=== PATIENT | female | born 1950 | race Caucasian/White ===

== ENCOUNTER 2017-06-14 15:59 | Outpatient (CLI) | payer MEDICARE, BC ==
[2015-02-03 09:43] VITALS: O2SAT 97
== END 2017-06-14 16:00 | disposition home or self-care (01) | DRG 552 ==
LOC: CONVCARE 15:59
PROVIDERS: ATTEND Orthopaedic Surgery
DX: M51.36 Other intervertebral disc degeneration, lumbar region (principal); M51.37 Other intervertebral disc degeneration, lumbosacral region
CPT/HCPCS: 72120

== ENCOUNTER 2017-07-18 11:33 | Day surgery (SDC) | payer MEDICARE, BC ==
[2017-07-18] MEDS ORDERED: BUPIVACAINE HCL 0.25% MPF 10 ML SOL INFIL ONE (12:03)
[2017-07-18] MEDS: DEXAMETHASONE SOD PHOS PF 10 MG/ML SOL IJ ONE ×3 (12:13→12:29)
[2017-07-18 12:36] VITALS: BP 140/63; PULSE 68; RESP 18; TEMP 98.2; O2SAT 94
== END 2017-07-18 12:55 | disposition home or self-care (01) | DRG 552 ==
LOC: SURG 11:33
PROVIDERS: ATTEND Nurse Anesthetist, Certified Registered
DX: M48.062 Spinal stenosis, lumbar region with neurogenic claudication (principal)
CPT/HCPCS: J1100

== ENCOUNTER 2017-08-08 13:24 | Day surgery (SDC) | payer MEDICARE, BC ==
[2017-08-08] MEDS ORDERED: BUPIVACAINE HCL 0.25% MPF 10 ML SOL INFIL ONE (15:05)
[2017-08-08] MEDS: TRIAMCINOLONE ACETONIDE 40 MG/ML SUS ONE ×2 (15:16→15:17)
[2017-08-08 15:37] VITALS: BP 130/46; PULSE 65; RESP 20; TEMP 97.5; O2SAT 95
== END 2017-08-08 16:15 | disposition home or self-care (01) | DRG 554 ==
LOC: SURG 13:24
PROVIDERS: ATTEND Nurse Anesthetist, Certified Registered
DX: M16.11 Unilateral primary osteoarthritis, right hip (principal)
CPT/HCPCS: J3300

== ENCOUNTER → 2017-08-22 | Day surgery (SDC) | payer MEDICARE, BC ==
[~2017-08-22] MED LIST: BUPIVACAINE HCL 0.25% MPF 10 ML SOL INFIL ONE; DIAZEPAM 5 MG TAB ONE
[2017-08-22] MEDS: DEXAMETHASONE SOD PHOS PF 10 MG/ML SOL IJ ONE ×2 (12:43→12:48)
[2017-08-22 13:03] VITALS: BP 144/69; PULSE 66; RESP 12; TEMP 98; O2SAT 96
== END | disposition home or self-care (01) | DRG 552 ==
LOC: SURG 11:35
PROVIDERS: ATTEND Nurse Anesthetist, Certified Registered
DX: M48.062 Spinal stenosis, lumbar region with neurogenic claudication (principal)
CPT/HCPCS: J1100

== ENCOUNTER 2017-10-20 12:45 | Inpatient (IN) | payer MEDICARE, BC ==
[2017-10-20] MEDS ORDERED: AZELASTINE HYDROCHLORIDE NAS PRN (17:34)
[2017-10-20] MEDS ORDERED: APAP/HYDROCODONE 325/7.5 TAB PO PRN ×2 (17:34→18:11)
[2017-10-20] MEDS ORDERED: DOCUSATE SODIUM 100 MG SGL PO PRN (17:34)
[2017-10-20] MEDS: CYCLOBENZAPRINE 10 MG TAB PO PRN (18:17)
[2017-10-20] MEDS ORDERED: OXYCODONE HYDROCHLORIDE 5 MG TAB PO ONE (18:45)
[2017-10-20] MEDS ORDERED: LAMOTRIGINE 25 MG TAB ONE (19:49)
[2017-10-20] MEDS: LEVETIRACETAM 250 MG TAB PO SCH (20:05)
[2017-10-20] MEDS: LAMOTRIGINE 100 MG TAB PO SCH (20:10)
[2017-10-20] MEDS: LOVASTATIN 10 MG TAB PO SCH (20:11)
[2017-10-20] MEDS: SENNOSIDES A AND B 8.6 MG TAB PO SCH (20:13)
[2017-10-20] MEDS: GABAPENTIN 300 MG CAP PO SCH (20:13)
[2017-10-20] MEDS: MULTIVITAMIN2 1 EA TAB PO SCH (20:14)
[2017-10-21] MEDS: APAP/HYDROCODONE 325/5 TAB PO PRN ×2 (03:17→09:26)
[2017-10-21 08:08] LABS: APPEARANCE,URINE Clear; BILIRUBIN,URINE NEGATIVE (NEGATIVE); COLOR,URINE Yellow; GLUCOSE, URINE (UA) NEGATIVE (NEGATIVE); KETONES,URINE NEGATIVE (NEGATIVE); LEUKOCYTE ESTERASE ,URINE NEGATIVE (NEGATIVE); NITRATE,URINE NEGATIVE (NEGATIVE); OCCULT BLOOD,URINE TRACE INTACT (NEG-TRACE); PH,URINE 8.5
[2017-10-21 08:35] LABS: RBC,URINE 0-2 (0-3AV/HPF); WBC,URINE 0-3 (0-5AV/HPF)
[2017-10-21] MEDS ORDERED: POLYETHYLENE GLYCOL 17 GM/1 TBS PDS PO PRN (09:00)
[2017-10-21] MEDS: LEVETIRACETAM 250 MG TAB PO SCH ×2 (09:24→20:15)
[2017-10-21] MEDS: GABAPENTIN 300 MG CAP PO SCH ×3 (09:25→20:18)
[2017-10-21] MEDS: CHOLECALCIFEROL 1,000 IU TAB PO SCH (09:25)
[2017-10-21] MEDS: SENNOSIDES A AND B 8.6 MG TAB PO SCH ×2 (09:25→20:18)
[2017-10-21] MEDS: ASCORBIC ACID 500 MG TAB PO SCH (09:25)
[2017-10-21] MEDS: ASPIRIN 81 MG CHEWABLE CTB PO SCH (09:25)
[2017-10-21] MEDS: CALCIUM CARBONATE 500 MG TAB PO SCH (09:25)
[2017-10-21] MEDS: CYCLOBENZAPRINE 10 MG TAB PO PRN ×3 (09:25→23:48)
[2017-10-21] MEDS: CYANOCOBALAMIN 500 MCG TAB PO SCH (09:26)
[2017-10-21] MEDS: SERTRALINE HYDROCHLORIDE 50 MG TAB PO SCH (09:33)
[2017-10-21] MEDS: LAMOTRIGINE 100 MG TAB PO SCH ×2 (09:35→20:20)
[2017-10-21] MEDS ORDERED: ACETAMINOPHEN 325 MG PO SCH (12:15)
[2017-10-21] MEDS: LIDOCAINE 5% PATCH 1 PATCH TDM TOP SCH (12:39)
[2017-10-21] MEDS: OXYCODONE HYDROCHLORIDE 5 MG TAB PO PRN ×2 (13:11→20:20)
[2017-10-21] MEDS: ENOXAPARIN 40 MG SOL SC SCH (13:15)
[2017-10-21] MEDS: ACETAMINOPHEN 500 MG 500 MG TAB PO SCH ×2 (14:11→20:14)
[2017-10-21] MEDS: LOVASTATIN 10 MG TAB PO SCH (20:17)
[2017-10-21] MEDS: MULTIVITAMIN2 1 EA TAB PO SCH (20:19)
[2017-10-22] MEDS: ACETAMINOPHEN 500 MG 500 MG TAB PO SCH ×4 (01:04→19:26)
[2017-10-22] MEDS: OXYCODONE HYDROCHLORIDE 5 MG TAB PO PRN ×4 (02:06→19:25)
[2017-10-22] MEDS: GABAPENTIN 300 MG CAP PO SCH ×3 (09:24→20:48)
[2017-10-22] MEDS: ASCORBIC ACID 500 MG TAB PO SCH (09:24)
[2017-10-22] MEDS: CHOLECALCIFEROL 1,000 IU TAB PO SCH (09:24)
[2017-10-22] MEDS: GABAPENTIN 100 MG CAP PO SCH ×3 (09:24→20:51)
[2017-10-22] MEDS: CALCIUM CARBONATE 500 MG TAB PO SCH (09:24)
[2017-10-22] MEDS: ASPIRIN 81 MG CHEWABLE CTB PO SCH (09:25)
[2017-10-22] MEDS: LEVETIRACETAM 250 MG TAB PO SCH ×2 (09:25→20:45)
[2017-10-22] MEDS: SERTRALINE HYDROCHLORIDE 50 MG TAB PO SCH (09:25)
[2017-10-22] MEDS: LAMOTRIGINE 100 MG TAB PO SCH ×2 (09:25→20:47)
[2017-10-22] MEDS: LIDOCAINE 5% PATCH 1 PATCH TDM TOP SCH (09:26)
[2017-10-22] MEDS: SENNOSIDES A AND B 8.6 MG TAB PO SCH ×2 (09:27→20:48)
[2017-10-22] MEDS: CYANOCOBALAMIN 500 MCG TAB PO SCH (12:12)
[2017-10-22] MEDS: ENOXAPARIN 40 MG SOL SC SCH (12:15)
[2017-10-22] MEDS: CYCLOBENZAPRINE 10 MG TAB PO PRN (20:44)
[2017-10-22] MEDS: LOVASTATIN 10 MG TAB PO SCH (20:48)
[2017-10-22] MEDS: MULTIVITAMIN2 1 EA TAB PO SCH (20:54)
[2017-10-23] MEDS: OXYCODONE HYDROCHLORIDE 5 MG TAB PO PRN ×4 (02:02→19:39)
[2017-10-23] MEDS: ACETAMINOPHEN 500 MG 500 MG TAB PO SCH ×4 (02:03→19:39)
[2017-10-23] MEDS: CYCLOBENZAPRINE 10 MG TAB PO PRN ×2 (06:38→13:29)
[2017-10-23] MEDS: CYANOCOBALAMIN 500 MCG TAB PO SCH (08:39)
[2017-10-23] MEDS: SENNOSIDES A AND B 8.6 MG TAB PO SCH ×2 (08:39→21:01)
[2017-10-23] MEDS: ASCORBIC ACID 500 MG TAB PO SCH (08:39)
[2017-10-23] MEDS: SERTRALINE HYDROCHLORIDE 50 MG TAB PO SCH (08:39)
[2017-10-23] MEDS: CHOLECALCIFEROL 1,000 IU TAB PO SCH (08:39)
[2017-10-23] MEDS: CALCIUM CARBONATE 500 MG TAB PO SCH (08:39)
[2017-10-23] MEDS: LEVETIRACETAM 250 MG TAB PO SCH ×2 (08:40→20:59)
[2017-10-23] MEDS: ASPIRIN 81 MG CHEWABLE CTB PO SCH (08:40)
[2017-10-23] MEDS: LAMOTRIGINE 100 MG TAB PO SCH ×2 (08:40→20:59)
[2017-10-23] MEDS: GABAPENTIN 300 MG CAP PO SCH ×3 (08:40→21:01)
[2017-10-23] MEDS: LIDOCAINE 5% PATCH 1 PATCH TDM TOP SCH (09:30)
[2017-10-23] MEDS: ENOXAPARIN 40 MG SOL SC SCH (12:02)
[2017-10-23] MEDS: LOVASTATIN 10 MG TAB PO SCH (21:00)
[2017-10-23] MEDS: MULTIVITAMIN2 1 EA TAB PO SCH (21:02)
[2017-10-24] MEDS: ACETAMINOPHEN 500 MG 500 MG TAB PO SCH ×4 (01:19→19:08)
[2017-10-24] MEDS: OXYCODONE HYDROCHLORIDE 5 MG TAB PO PRN ×5 (01:19→23:20)
[2017-10-24] MEDS: CYCLOBENZAPRINE 10 MG TAB PO PRN ×2 (06:17→15:58)
[2017-10-24] MEDS: ASPIRIN 81 MG CHEWABLE CTB PO SCH (10:09)
[2017-10-24] MEDS: SENNOSIDES A AND B 8.6 MG TAB PO SCH ×2 (10:09→20:10)
[2017-10-24] MEDS: LAMOTRIGINE 100 MG TAB PO SCH ×2 (10:09→20:10)
[2017-10-24] MEDS: LEVETIRACETAM 250 MG TAB PO SCH ×2 (10:10→20:09)
[2017-10-24] MEDS: ASCORBIC ACID 500 MG TAB PO SCH (10:11)
[2017-10-24] MEDS: CALCIUM CARBONATE 500 MG TAB PO SCH (10:11)
[2017-10-24] MEDS: CHOLECALCIFEROL 1,000 IU TAB PO SCH (10:11)
[2017-10-24] MEDS: GABAPENTIN 300 MG CAP PO SCH ×3 (10:12→20:10)
[2017-10-24] MEDS: LORAZEPAM 0.5 MG TAB PO SCH ×2 (10:12→20:09)
[2017-10-24] MEDS: SERTRALINE HYDROCHLORIDE 50 MG TAB PO SCH (10:12)
[2017-10-24] MEDS: CYANOCOBALAMIN 500 MCG TAB PO SCH (10:22)
[2017-10-24] MEDS: LIDOCAINE 5% PATCH 1 PATCH TDM TOP SCH (10:23)
[2017-10-24] MEDS: ENOXAPARIN 40 MG SOL SC SCH (13:13)
[2017-10-24] MEDS: LOVASTATIN 10 MG TAB PO SCH (20:10)
[2017-10-24] MEDS: MULTIVITAMIN2 1 EA TAB PO SCH (20:11)
[2017-10-25] MEDS: CYCLOBENZAPRINE 10 MG TAB PO PRN (01:32)
[2017-10-25] MEDS: ACETAMINOPHEN 500 MG 500 MG TAB PO SCH ×4 (01:32→19:40)
[2017-10-25] MEDS: OXYCODONE HYDROCHLORIDE 5 MG TAB PO PRN ×4 (04:20→22:27)
[2017-10-25] MEDS: LAMOTRIGINE 100 MG TAB PO SCH ×2 (08:54→20:33)
[2017-10-25] MEDS: SENNOSIDES A AND B 8.6 MG TAB PO SCH ×2 (08:55→20:34)
[2017-10-25] MEDS: ASPIRIN 81 MG CHEWABLE CTB PO SCH (08:56)
[2017-10-25] MEDS: LEVETIRACETAM 250 MG TAB PO SCH ×2 (08:58→20:32)
[2017-10-25] MEDS: CALCIUM CARBONATE 500 MG TAB PO SCH (09:00)
[2017-10-25] MEDS: CHOLECALCIFEROL 1,000 IU TAB PO SCH (09:01)
[2017-10-25] MEDS: SERTRALINE HYDROCHLORIDE 50 MG TAB PO SCH (09:01)
[2017-10-25] MEDS: ASCORBIC ACID 500 MG TAB PO SCH (09:01)
[2017-10-25] MEDS: GABAPENTIN 300 MG CAP PO SCH ×3 (09:02→20:33)
[2017-10-25] MEDS: CYANOCOBALAMIN 500 MCG TAB PO SCH (09:04)
[2017-10-25] MEDS: LORAZEPAM 0.5 MG TAB PO SCH ×2 (09:36→20:31)
[2017-10-25] MEDS: LIDOCAINE 5% PATCH 1 PATCH TDM TOP SCH (09:59)
[2017-10-25] MEDS: ENOXAPARIN 40 MG SOL SC SCH (12:33)
[2017-10-25] MEDS: CAMPHOR TOP SCH ×3 (17:13→20:33)
[2017-10-25] MEDS: MENTHOL TOP SCH ×3 (17:13→20:33)
[2017-10-25] MEDS: LOVASTATIN 10 MG TAB PO SCH (20:33)
[2017-10-25] MEDS: MULTIVITAMIN2 1 EA TAB PO SCH (20:34)
[2017-10-26] MEDS: ACETAMINOPHEN 500 MG 500 MG TAB PO SCH ×4 (01:42→19:21)
[2017-10-26] MEDS: OXYCODONE HYDROCHLORIDE 5 MG TAB PO PRN ×4 (03:35→20:43)
[2017-10-26] MEDS: LEVETIRACETAM 250 MG TAB PO SCH (08:29)
[2017-10-26] MEDS: GABAPENTIN 300 MG CAP PO SCH ×3 (08:30→20:40)
[2017-10-26] MEDS: LAMOTRIGINE 100 MG TAB PO SCH ×2 (08:30→20:45)
[2017-10-26] MEDS: ASCORBIC ACID 500 MG TAB PO SCH (08:31)
[2017-10-26] MEDS: CHOLECALCIFEROL 1,000 IU TAB PO SCH (08:31)
[2017-10-26] MEDS: CALCIUM CARBONATE 500 MG TAB PO SCH (08:31)
[2017-10-26] MEDS: CYANOCOBALAMIN 500 MCG TAB PO SCH (08:31)
[2017-10-26] MEDS: SENNOSIDES A AND B 8.6 MG TAB PO SCH ×2 (08:31→20:44)
[2017-10-26] MEDS: SERTRALINE HYDROCHLORIDE 50 MG TAB PO SCH (08:32)
[2017-10-26] MEDS: LORAZEPAM 0.5 MG TAB PO SCH ×2 (08:37→20:40)
[2017-10-26] MEDS: CAMPHOR TOP SCH ×5 (08:38→20:39)
[2017-10-26] MEDS: LIDOCAINE 5% PATCH 1 PATCH TDM TOP SCH ×2 (08:38→10:43)
[2017-10-26] MEDS: ASPIRIN 81 MG CHEWABLE CTB PO SCH (08:38)
[2017-10-26] MEDS: MENTHOL TOP SCH ×5 (08:38→20:39)
[2017-10-26] MEDS: ENOXAPARIN 40 MG SOL SC SCH (12:28)
[2017-10-26] MEDS: LEVETIRACETAM 500 MG TAB PO SCH (20:39)
[2017-10-26] MEDS: MULTIVITAMIN2 1 EA TAB PO SCH (20:46)
[2017-10-26] MEDS: LOVASTATIN 10 MG TAB PO SCH (20:46)
[2017-10-27] MEDS: OXYCODONE HYDROCHLORIDE 5 MG TAB PO PRN ×5 (01:13→19:29)
[2017-10-27] MEDS: CYCLOBENZAPRINE 10 MG TAB PO PRN ×2 (01:43→11:41)
[2017-10-27] MEDS: ACETAMINOPHEN 500 MG 500 MG TAB PO SCH ×4 (03:46→19:29)
[2017-10-27] MEDS: ASCORBIC ACID 500 MG TAB PO SCH (09:11)
[2017-10-27] MEDS: LIDOCAINE 5% PATCH 1 PATCH TDM TOP SCH (09:11)
[2017-10-27] MEDS: LAMOTRIGINE 100 MG TAB PO SCH ×2 (09:12→20:31)
[2017-10-27] MEDS: CHOLECALCIFEROL 1,000 IU TAB PO SCH (09:12)
[2017-10-27] MEDS: CALCIUM CARBONATE 500 MG TAB PO SCH (09:12)
[2017-10-27] MEDS: CAMPHOR TOP SCH ×4 (09:13→20:37)
[2017-10-27] MEDS: MENTHOL TOP SCH ×4 (09:13→20:37)
[2017-10-27] MEDS: LEVETIRACETAM 500 MG TAB PO SCH ×2 (09:16→20:37)
[2017-10-27] MEDS: GABAPENTIN 300 MG CAP PO SCH ×3 (09:16→20:35)
[2017-10-27] MEDS: SENNOSIDES A AND B 8.6 MG TAB PO SCH ×2 (09:16→20:33)
[2017-10-27] MEDS: ASPIRIN 81 MG CHEWABLE CTB PO SCH (09:17)
[2017-10-27] MEDS: CYANOCOBALAMIN 500 MCG TAB PO SCH (09:18)
[2017-10-27] MEDS: LORAZEPAM 0.5 MG TAB PO SCH ×2 (09:19→20:36)
[2017-10-27] MEDS: SERTRALINE HYDROCHLORIDE 50 MG TAB PO SCH (09:26)
[2017-10-27] MEDS: ENOXAPARIN 40 MG SOL SC SCH (11:42)
[2017-10-27] MEDS: LOVASTATIN 10 MG TAB PO SCH (20:32)
[2017-10-27] MEDS: MULTIVITAMIN2 1 EA TAB PO SCH (20:33)
[2017-10-28] MEDS: CYCLOBENZAPRINE 10 MG TAB PO PRN ×2 (00:22→22:57)
[2017-10-28] MEDS: OXYCODONE HYDROCHLORIDE 5 MG TAB PO PRN ×5 (00:22→22:57)
[2017-10-28] MEDS: ACETAMINOPHEN 500 MG 500 MG TAB PO SCH ×4 (00:39→19:57)
[2017-10-28] MEDS: LIDOCAINE 5% PATCH 1 PATCH TDM TOP SCH (09:26)
[2017-10-28] MEDS: MENTHOL TOP SCH ×4 (09:28→19:58)
[2017-10-28] MEDS: CAMPHOR TOP SCH ×4 (09:28→19:58)
[2017-10-28] MEDS: CYANOCOBALAMIN 500 MCG TAB PO SCH (09:29)
[2017-10-28] MEDS: LEVETIRACETAM 500 MG TAB PO SCH ×2 (09:29→20:03)
[2017-10-28] MEDS: SENNOSIDES A AND B 8.6 MG TAB PO SCH ×2 (09:29→20:00)
[2017-10-28] MEDS: LORAZEPAM 0.5 MG TAB PO SCH ×2 (09:29→20:05)
[2017-10-28] MEDS: GABAPENTIN 300 MG CAP PO SCH ×3 (09:30→20:02)
[2017-10-28] MEDS: CALCIUM CARBONATE 500 MG TAB PO SCH (09:30)
[2017-10-28] MEDS: SERTRALINE HYDROCHLORIDE 50 MG TAB PO SCH (09:30)
[2017-10-28] MEDS: LAMOTRIGINE 100 MG TAB PO SCH ×2 (09:30→19:59)
[2017-10-28] MEDS: ASPIRIN 81 MG CHEWABLE CTB PO SCH (09:32)
[2017-10-28] MEDS: ASCORBIC ACID 500 MG TAB PO SCH (09:32)
[2017-10-28] MEDS: CHOLECALCIFEROL 1,000 IU TAB PO SCH (09:32)
[2017-10-28] MEDS: ENOXAPARIN 40 MG SOL SC SCH (12:56)
[2017-10-28] MEDS: LOVASTATIN 10 MG TAB PO SCH (19:59)
[2017-10-28] MEDS: MULTIVITAMIN2 1 EA TAB PO SCH (20:00)
[2017-10-29] MEDS: CAMPHOR TOP SCH ×5 (01:16→21:34)
[2017-10-29] MEDS: MENTHOL TOP SCH ×5 (01:16→21:34)
[2017-10-29] MEDS: ACETAMINOPHEN 500 MG 500 MG TAB PO SCH ×4 (02:04→19:55)
[2017-10-29] MEDS: OXYCODONE HYDROCHLORIDE 5 MG TAB PO PRN ×3 (02:44→16:57)
[2017-10-29] MEDS: LAMOTRIGINE 100 MG TAB PO SCH ×2 (09:06→21:27)
[2017-10-29] MEDS: ASPIRIN 81 MG CHEWABLE CTB PO SCH (09:06)
[2017-10-29] MEDS: LEVETIRACETAM 500 MG TAB PO SCH ×2 (09:07→21:27)
[2017-10-29] MEDS: GABAPENTIN 300 MG CAP PO SCH ×3 (09:07→21:26)
[2017-10-29] MEDS: LIDOCAINE 5% PATCH 1 PATCH TDM TOP SCH (09:07)
[2017-10-29] MEDS: SENNOSIDES A AND B 8.6 MG TAB PO SCH ×2 (09:08→21:26)
[2017-10-29] MEDS: CYANOCOBALAMIN 500 MCG TAB PO SCH (09:08)
[2017-10-29] MEDS: CALCIUM CARBONATE 500 MG TAB PO SCH (09:08)
[2017-10-29] MEDS: SERTRALINE HYDROCHLORIDE 50 MG TAB PO SCH (09:09)
[2017-10-29] MEDS: ASCORBIC ACID 500 MG TAB PO SCH (09:09)
[2017-10-29] MEDS: CHOLECALCIFEROL 1,000 IU TAB PO SCH (09:09)
[2017-10-29] MEDS: LORAZEPAM 0.5 MG TAB PO SCH ×2 (09:13→21:27)
[2017-10-29] MEDS: ENOXAPARIN 40 MG SOL SC SCH (12:09)
[2017-10-29] MEDS: LOVASTATIN 10 MG TAB PO SCH (21:26)
[2017-10-29] MEDS: MULTIVITAMIN2 1 EA TAB PO SCH (21:27)
[2017-10-29] MEDS: CYCLOBENZAPRINE 10 MG TAB PO PRN (21:33)
[2017-10-30] MEDS: OXYCODONE HYDROCHLORIDE 5 MG TAB PO PRN ×4 (00:30→22:49)
[2017-10-30] MEDS: ACETAMINOPHEN 500 MG 500 MG TAB PO SCH ×4 (01:38→20:31)
[2017-10-30] MEDS: CYCLOBENZAPRINE 10 MG TAB PO PRN (05:49)
[2017-10-30] MEDS: ASPIRIN 81 MG CHEWABLE CTB PO SCH (08:41)
[2017-10-30] MEDS: LEVETIRACETAM 500 MG TAB PO SCH ×2 (08:42→21:24)
[2017-10-30] MEDS: LAMOTRIGINE 100 MG TAB PO SCH ×2 (08:42→21:23)
[2017-10-30] MEDS: CALCIUM CARBONATE 500 MG TAB PO SCH (08:43)
[2017-10-30] MEDS: GABAPENTIN 300 MG CAP PO SCH ×3 (08:43→21:27)
[2017-10-30] MEDS: SENNOSIDES A AND B 8.6 MG TAB PO SCH ×2 (08:43→21:28)
[2017-10-30] MEDS: SERTRALINE HYDROCHLORIDE 50 MG TAB PO SCH (08:44)
[2017-10-30] MEDS: CHOLECALCIFEROL 1,000 IU TAB PO SCH (08:44)
[2017-10-30] MEDS: CYANOCOBALAMIN 500 MCG TAB PO SCH (08:44)
[2017-10-30] MEDS: ASCORBIC ACID 500 MG TAB PO SCH (08:44)
[2017-10-30] MEDS: CAMPHOR TOP SCH ×4 (08:53→21:43)
[2017-10-30] MEDS: MENTHOL TOP SCH ×4 (08:53→21:43)
[2017-10-30] MEDS: LORAZEPAM 0.5 MG TAB PO SCH ×2 (08:53→21:43)
[2017-10-30] MEDS: LIDOCAINE 5% PATCH 1 PATCH TDM TOP SCH (08:53)
[2017-10-30] MEDS: ENOXAPARIN 40 MG SOL SC SCH (11:58)
[2017-10-30] MEDS: LOVASTATIN 10 MG TAB PO SCH (21:23)
[2017-10-30] MEDS: MULTIVITAMIN2 1 EA TAB PO SCH (21:28)
[2017-10-31] MEDS: CYCLOBENZAPRINE 10 MG TAB PO PRN ×2 (00:20→17:43)
[2017-10-31] MEDS: ACETAMINOPHEN 500 MG 500 MG TAB PO SCH ×4 (02:02→20:14)
[2017-10-31] MEDS: OXYCODONE HYDROCHLORIDE 5 MG TAB PO PRN ×4 (04:20→23:44)
[2017-10-31] MEDS: ASPIRIN 81 MG CHEWABLE CTB PO SCH (08:41)
[2017-10-31] MEDS: LAMOTRIGINE 100 MG TAB PO SCH ×2 (08:42→20:25)
[2017-10-31] MEDS: LORAZEPAM 0.5 MG TAB PO SCH ×2 (08:42→20:33)
[2017-10-31] MEDS: LEVETIRACETAM 500 MG TAB PO SCH ×2 (08:43→20:27)
[2017-10-31] MEDS: GABAPENTIN 300 MG CAP PO SCH ×3 (08:44→20:30)
[2017-10-31] MEDS: CYANOCOBALAMIN 500 MCG TAB PO SCH (08:45)
[2017-10-31] MEDS: ASCORBIC ACID 500 MG TAB PO SCH (08:45)
[2017-10-31] MEDS: SENNOSIDES A AND B 8.6 MG TAB PO SCH ×2 (08:45→20:30)
[2017-10-31] MEDS: CALCIUM CARBONATE 500 MG TAB PO SCH (08:45)
[2017-10-31] MEDS: SERTRALINE HYDROCHLORIDE 50 MG TAB PO SCH (08:46)
[2017-10-31] MEDS: CAMPHOR TOP SCH ×4 (10:53→20:33)
[2017-10-31] MEDS: MENTHOL TOP SCH ×4 (10:53→20:33)
[2017-10-31] MEDS: LIDOCAINE 5% PATCH 1 PATCH TDM TOP SCH (10:54)
[2017-10-31] MEDS: CHOLECALCIFEROL 1,000 IU TAB PO SCH (10:56)
[2017-10-31] MEDS: ENOXAPARIN 40 MG SOL SC SCH (11:45)
[2017-10-31] MEDS: MULTIVITAMIN2 1 EA TAB PO SCH (20:29)
[2017-10-31] MEDS: LOVASTATIN 10 MG TAB PO SCH (20:33)
[2017-11-01] MEDS: ACETAMINOPHEN 500 MG 500 MG TAB PO SCH ×4 (02:25→20:19)
[2017-11-01] MEDS: OXYCODONE HYDROCHLORIDE 5 MG TAB PO PRN ×3 (05:26→16:44)
[2017-11-01] MEDS: CYCLOBENZAPRINE 10 MG TAB PO PRN (07:11)
[2017-11-01] MEDS: LAMOTRIGINE 100 MG TAB PO SCH ×2 (09:45→20:20)
[2017-11-01] MEDS: SENNOSIDES A AND B 8.6 MG TAB PO SCH ×2 (09:45→20:22)
[2017-11-01] MEDS: CYANOCOBALAMIN 500 MCG TAB PO SCH (09:46)
[2017-11-01] MEDS: CALCIUM CARBONATE 500 MG TAB PO SCH (09:46)
[2017-11-01] MEDS: ASPIRIN 81 MG CHEWABLE CTB PO SCH (09:46)
[2017-11-01] MEDS: ASCORBIC ACID 500 MG TAB PO SCH (09:47)
[2017-11-01] MEDS: SERTRALINE HYDROCHLORIDE 50 MG TAB PO SCH (09:48)
[2017-11-01] MEDS: CHOLECALCIFEROL 1,000 IU TAB PO SCH (09:48)
[2017-11-01] MEDS: GABAPENTIN 300 MG CAP PO SCH ×3 (09:49→20:25)
[2017-11-01] MEDS: CAMPHOR TOP SCH ×4 (09:49→20:20)
[2017-11-01] MEDS: MENTHOL TOP SCH ×4 (09:49→20:20)
[2017-11-01] MEDS: LEVETIRACETAM 500 MG TAB PO SCH ×2 (09:50→20:21)
[2017-11-01] MEDS: LIDOCAINE 5% PATCH 1 PATCH TDM TOP SCH (09:59)
[2017-11-01] MEDS: LORAZEPAM 0.5 MG TAB PO SCH ×2 (09:59→20:19)
[2017-11-01] MEDS: ENOXAPARIN 40 MG SOL SC SCH (11:50)
[2017-11-01] MEDS: LOVASTATIN 10 MG TAB PO SCH (20:21)
[2017-11-01] MEDS: MULTIVITAMIN2 1 EA TAB PO SCH (20:26)
[2017-11-02] MEDS: ACETAMINOPHEN 500 MG 500 MG TAB PO SCH ×4 (02:25→21:06)
[2017-11-02] MEDS: OXYCODONE HYDROCHLORIDE 5 MG TAB PO PRN ×4 (05:37→21:07)
[2017-11-02] MEDS: CYCLOBENZAPRINE 10 MG TAB PO PRN (06:09)
[2017-11-02 08:14] VITALS: RESP 18
[2017-11-02] MEDS: CAMPHOR TOP SCH ×4 (08:19→21:07)
[2017-11-02] MEDS: MENTHOL TOP SCH ×4 (08:19→21:07)
[2017-11-02] MEDS: LIDOCAINE 5% PATCH 1 PATCH TDM TOP SCH (08:20)
[2017-11-02] MEDS: LAMOTRIGINE 100 MG TAB PO SCH ×2 (08:21→21:07)
[2017-11-02] MEDS: ASPIRIN 81 MG CHEWABLE CTB PO SCH (08:21)
[2017-11-02] MEDS: SENNOSIDES A AND B 8.6 MG TAB PO SCH ×2 (08:21→21:11)
[2017-11-02] MEDS: ASCORBIC ACID 500 MG TAB PO SCH (08:22)
[2017-11-02] MEDS: CYANOCOBALAMIN 500 MCG TAB PO SCH (08:22)
[2017-11-02] MEDS: CALCIUM CARBONATE 500 MG TAB PO SCH (08:22)
[2017-11-02] MEDS: CHOLECALCIFEROL 1,000 IU TAB PO SCH (08:23)
[2017-11-02] MEDS: SERTRALINE HYDROCHLORIDE 50 MG TAB PO SCH (08:23)
[2017-11-02] MEDS: LEVETIRACETAM 500 MG TAB PO SCH ×2 (08:24→21:09)
[2017-11-02] MEDS: GABAPENTIN 300 MG CAP PO SCH ×3 (08:24→21:11)
[2017-11-02] MEDS: LORAZEPAM 0.5 MG TAB PO SCH ×2 (08:27→21:06)
[2017-11-02] MEDS: MULTIVITAMIN2 1 EA TAB PO SCH (21:11)
[2017-11-02] MEDS: LOVASTATIN 10 MG TAB PO SCH (21:13)
[2017-11-03] MEDS: OXYCODONE HYDROCHLORIDE 5 MG TAB PO PRN ×3 (01:10→17:53)
[2017-11-03] MEDS: ACETAMINOPHEN 500 MG 500 MG TAB PO SCH ×4 (01:10→21:39)
[2017-11-03] MEDS: ASCORBIC ACID 500 MG TAB PO SCH (09:01)
[2017-11-03] MEDS: CYANOCOBALAMIN 500 MCG TAB PO SCH (09:01)
[2017-11-03] MEDS: LORAZEPAM 0.5 MG TAB PO SCH ×2 (09:01→21:40)
[2017-11-03] MEDS: GABAPENTIN 300 MG CAP PO SCH ×3 (09:01→21:40)
[2017-11-03] MEDS: SERTRALINE HYDROCHLORIDE 50 MG TAB PO SCH (09:01)
[2017-11-03] MEDS: SENNOSIDES A AND B 8.6 MG TAB PO SCH ×2 (09:01→21:40)
[2017-11-03] MEDS: ASPIRIN 81 MG CHEWABLE CTB PO SCH (09:01)
[2017-11-03] MEDS: LAMOTRIGINE 100 MG TAB PO SCH ×2 (09:01→21:40)
[2017-11-03] MEDS: CALCIUM CARBONATE 500 MG TAB PO SCH (09:01)
[2017-11-03] MEDS: CAMPHOR TOP SCH ×4 (09:02→21:43)
[2017-11-03] MEDS: CHOLECALCIFEROL 1,000 IU TAB PO SCH (09:02)
[2017-11-03] MEDS: LEVETIRACETAM 500 MG TAB PO SCH ×2 (09:02→21:39)
[2017-11-03] MEDS: MENTHOL TOP SCH ×4 (09:02→21:43)
[2017-11-03] MEDS: LIDOCAINE 5% PATCH 1 PATCH TDM TOP SCH (09:03)
[2017-11-03] MEDS: CYCLOBENZAPRINE 10 MG TAB PO PRN (15:39)
[2017-11-03] MEDS ORDERED: LOVASTATIN 10 MG TAB PO SCH (21:00)
[2017-11-03] MEDS: MULTIVITAMIN2 1 EA TAB PO SCH (21:40)
[2017-11-03 22:03] VITALS: O2SAT 93
[2017-11-04] MEDS: LOVASTATIN 10 MG TAB PO SCH (00:03)
[2017-11-04] MEDS: ACETAMINOPHEN 500 MG 500 MG TAB PO SCH ×3 (03:33→12:45)
[2017-11-04] MEDS: OXYCODONE HYDROCHLORIDE 5 MG TAB PO PRN ×2 (07:50→17:21)
[2017-11-04] MEDS: GABAPENTIN 300 MG CAP PO SCH ×2 (08:55→15:47)
[2017-11-04] MEDS: ASPIRIN 81 MG CHEWABLE CTB PO SCH (08:55)
[2017-11-04] MEDS: SERTRALINE HYDROCHLORIDE 50 MG TAB PO SCH (08:55)
[2017-11-04] MEDS: LAMOTRIGINE 100 MG TAB PO SCH (08:55)
[2017-11-04] MEDS: CALCIUM CARBONATE 500 MG TAB PO SCH (08:56)
[2017-11-04] MEDS: ASCORBIC ACID 500 MG TAB PO SCH (08:56)
[2017-11-04] MEDS: SENNOSIDES A AND B 8.6 MG TAB PO SCH (08:56)
[2017-11-04] MEDS: LEVETIRACETAM 500 MG TAB PO SCH (08:56)
[2017-11-04] MEDS: CYANOCOBALAMIN 500 MCG TAB PO SCH (08:57)
[2017-11-04] MEDS: CHOLECALCIFEROL 1,000 IU TAB PO SCH (08:57)
[2017-11-04] MEDS: MENTHOL TOP SCH ×3 (09:01→17:21)
[2017-11-04] MEDS: CAMPHOR TOP SCH ×3 (09:01→17:21)
[2017-11-04] MEDS: LIDOCAINE 5% PATCH 1 PATCH TDM TOP SCH (09:01)
[2017-11-04] MEDS: LORAZEPAM 0.5 MG TAB PO SCH (09:01)
[2017-11-04 09:13] VITALS: BP 124/70; PULSE 63; TEMP 98
== END 2017-11-04 18:10 | disposition home or self-care (01) | DRG 561 ==
LOC: ACUTE CARE 15:26
PROVIDERS: ADMIT Family Medicine; ATTEND Family Medicine
PROC: F01ZDFZ Gait and/or Balance Assessment using Assistive, Adaptive, Supportive or Protective Equipment (ICD-10-PCS; 2017-10-21)
PROC: F01ZBZZ Bed Mobility Assessment (ICD-10-PCS; 2017-10-21)
PROC: F01ZCZZ Transfer Assessment (ICD-10-PCS; 2017-10-21)
PROC: F02Z1ZZ Dressing Assessment (ICD-10-PCS; principal; 2017-10-22)
PROC: F02Z0ZZ Bathing/Showering Assessment (ICD-10-PCS; 2017-10-22)
PROC: F02Z3ZZ Grooming/Personal Hygiene Assessment (ICD-10-PCS; 2017-10-22)
DX: Z47.89 Encounter for other orthopedic aftercare (principal); E78.5 Hyperlipidemia, unspecified; G40.909 Epilepsy, unspecified, not intractable, without status epilepticus; Z98.1 Arthrodesis status; G89.18 Other acute postprocedural pain; Z96.652 Presence of left artificial knee joint; M25.461 Effusion, right knee; M17.11 Unilateral primary osteoarthritis, right knee; G47.33 Obstructive sleep apnea (adult) (pediatric)
CPT/HCPCS: 73562; 81001; 94150; 94760; 94762; J1650; A4450; A6219; A6232; A9270-GY